=== PATIENT | male | born 1980 | race African-American/Black ===

== ENCOUNTER 2020-06-14 19:46 | Emergency (ER) | payer MEDICAID, SELFPAY ==
[2020-06-14 21:00] VITALS: BP 155/73; PULSE 86; RESP 16; TEMP 36.9; O2SAT 99; BMI 27.1
--- NOTE | 2020-06-14 21:30 | ED_ITS ---
HPI - Abdominal Pain General Chief Complaint: Abdominal Pain Stated Complaint: rib pain' Time Seen by Provider: 06/14/20 21:30 Source: patient Mode of arrival: ambulatory Limitations: no limitations History of Present Illness HPI narrative: Patient's history of recurrent kidney stones been having left flank pain for last 1 week was in [place] pain lasted for a day and then got better again for last 2 days having left flank pain radiating to the left lower quadrant and having pain in left testicle also patient denies any vomiting no shortness of breath nor abdominal distension no blood in the urine, patient feel s similar pain as in the past when he had kidney stones never been seen by urologist never had any stent placed or lithotripsy done Related Data Allergies Allergy/AdvReac Type Severity Reaction Status Date / Time No Known Allergies Allergy Verified 06/14/20 21:03 [No Known Allergies*] Review of Systems Review of Systems Constitutional : No Weight loss, No Fever, No Chills ENT/Mouth : No sore throat, No Rhinorrhea Eyes: No Eye Pain, No Swelling Cardiovascular : No Chest Pain, no palpitations Respiratory : No Cough, No Sputum, no shortness of breath Gastrointestinal : no Nausea, No Vomiting, No Diarrhea, ++ abdominal Pain, no black stools Genitourinary : No Dysuria, No Urinary Frequency Musculoskeletal : No joint pain, No Myalgias, No Joint Swelling Skin : No Skin Lesions, No rash Neuro : No Weakness, No Numbness, No Dizziness, No Headache Psych : No Anxiety/Panic, No Depression Heme/Lymph: No Bruising, No Lymphadenopathy Endocrine : No Polyuria, No Polydipsia All other systems reviewed and are negative Physical Exam Vital Signs: Vital Signs: Last Vital Signs Temp 98.1 F 06/15/20 00:00 Pulse 71 06/15/20 00:00 Resp 16 06/15/20 00:00 BP 156/82 H 06/15/20 00:00 Pulse Ox 99 06/15/20 00:00 Body Mass Index 27.1 Appearance: Alert. Oriented X3. In mild distress Eyes: Pupils equal, round and reactive to light. ENT: Pharynx normal. Neck: Normal inspection. Neck supple. CVS: Normal heart rate and rhythm. Pulses normal. Respiratory: No respiratory distress. Breath sounds normal. Abdomen: Soft and nontender. Bowel sounds are present, no mass palpable, left CVA tenderness ++ normal testicles nontender Skin: Skin warm and dry. Normal skin color. Normal skin turgor. Extremities: No lower extremity edema. Neuro: Oriented X 3. No motor deficit. No sensory deficit. MDM - Abdominal Pain MDM Narrative Medical decision making narrative: Patient with left UPJ stone 1.5 x 0.7 cm with obstructive hydronephrosis, feeling much better after pain medication and IV hydration. Patient advised to see Dr. Rose in the morning at 08:30. Patient had a COVID testing done 2 days ago which was negative Lab Data Attestation: I reviewed the patient's lab results. Result diagrams: 06/14/20 21:46 06/14/20 21:46 Labs: Lab Results 06/14/20 06/14/20 06/15/20 Range/Units 21:46 21:46 00:16 WBC 11.4 H (4.8-10.8) X10*3/uL RBC 4.36 L (4.60-5.80) X10*6/uL Hgb 12.5 L (14.0-18.0) g/dl Hct 37.3 L (42-52) % MCV 85.6 (80-98) fL MCH 28.7 (27.0-33.0) pg MCHC 33.5 (31.0-36.0) g/dl RDW 12.6 (11.0-16.0) % Plt Count 331 (160-400) X10*3/uL MPV 9.6 (9.4-12.4) fL Immature Gran % (Auto) 0.2 (0.0-0.4) % Neut % (Auto) 61.3 (45-73) % Lymph % (Auto) 27.9 (20-40) % Hancock % (Auto) 9.3 (2-11) % Eos % (Auto) 0.9 (0-4) % Baso % (Auto) 0.4 (0-2) % Lymph # (Auto) 3.2 (1.2-4.9) X10*3/uL Hancock # (Auto) 1.1 (0.1-1.2) X10*3/uL Eos # (Auto) 0.1 (0.0-0.4) X10*3/uL Baso # (Auto) 0.1 (0.0-0.2) X10*3/uL Abs Immat Gran (auto) 0.02 (0.00-0.03) X10*3/uL Absolute Neuts (auto) 7.0 (2.0-8.3) X10*3/uL Absolute Nucleated RBC 0.000 (0.0-0.012) X10*3/uL Nucleated RBC % (auto) 0.0 (0.0-0.2) /100WBC Sodium 141 (135-145) mmol/L Potassium 4.4 (3.3-5.1) mmol/l Chloride 101 (96-108) mmol/L Carbon Dioxide 30 H (22-29) mmol/L Anion Gap 14 (12-20) BUN 15 (9-16) mg/dL Creatinine 1.78 H (0.5-1.4) mg/dL Estim Creat Clear Calc 59.9 Estimated GFR 42 Random Glucose 253 H (60-115) mg/dL Calcium 9.4 (8.4-10.2) mg/dL Total Bilirubin 0.5 (0.0-1.0) mg/dL AST 20 (5-37) U/L ALT 21 (0-40) U/L Alkaline Phosphatase 68 (39-117) U/L Total Protein 8.0 (6.5-8.0) g/dL Albumin 5.0 (3.5-5.0) g/dL Urine Color YELLOW Urine Appearance CLEAR Urine pH 5.5 (5.0-8.0) Ur Specific [place] 1.025 (1.005-1.025) Urine Protein NEG (NEG-TRACE) MG/DL Urine Glucose (UA) 250 H (NEG) MG/DL Urine Ketones NEG (NEG) MG/DL Urine Blood 1+ H (NEG) Urine Nitrite NEG (NEG) Ur Leukocyte Esterase NEG (NEG) Urine RBC 1-4 (0) /HPF Urine WBC 1-4 (0-4) /HPF Ur Squamous Epith Cells 1+ /LPF Triple Phos Crystals 1+ /LPF Urine Bacteria 1+ /LPF Urine Mucus 1+ /LPF Imaging Data CT scan - abdomen: Attestation: I personally reviewed and interpreted this imaging study as follows: Radiologist's impression: CT/CT abdomen pelvis wo con IMPRESSION: Moderate hydronephrosis on the left caused by a large 1.5 x 0.7 cm calculus at the UPJ. Discharge Plan Discharge Clinical Impression: Calculus of kidney Patient Disposition: Home, Self-Care Instructions: Kidney Stones (ED) Additional Instructions: Drink plenty of fluid. Stay empty stomach in the morning and see urologist at 08:30 a.m. for further management Referrals: Enmanuel Rose MD [Physician] - 1 day [facility] Past Medical History Medical History Diabetes Kidney stones Social History Social History Advance Directives: No Advance Directives Information Provided: No
--- NOTE | 2020-06-14 21:35 | CT_ITS ---
EXAMINATION: CT ABDOMEN AND PELVIS WITHOUT CONTRAST CLINICAL INFORMATION: Left flank pain COMPARISON: None TECHNIQUE: Multidetector volumetric imaging was performed from the superior aspect of the liver through the pubic symphysis. Sagittal and coronal reformatted images were obtained on the technologist's workstation. This CT examination was performed using dose optimization techniques as appropriate, variously including the following: *Automated exposure control *Adjustment of mA and/or kV according to patient size (this includes techniques or standardized protocols for targeted exams where dose is matched to indication/reason for exam; i.e. extremities or head) *Use of iterative reconstruction technique DLP: 744 mGy-cm FINDINGS: LUNG BASES: The visualized lung bases are unremarkable. LIVER, GALLBLADDER, AND BILIARY TREE: The liver is normal in size, shape, and attenuation. No focal hepatic lesion or biliary ductal dilatation is present. The gallbladder is unremarkable with no evidence of radiopaque gallstones, gallbladder wall thickening, or obvious pericholecystic inflammatory changes. PANCREAS: Unremarkable. SPLEEN: Unremarkable. ADRENAL GLANDS: Unremarkable. KIDNEYS AND URETERS: Hydronephrosis on the left. This is caused by 1.5 x 0.7 cm calculus at the level of the UPJ. 2 tiny nonobstructing calculi in the lower pole are also noted. The right kidney is nonhydronephrotic. BLADDER: Mildly thick-walled. GASTROINTESTINAL TRACT: The small and large bowel are unremarkable. The appendix is unremarkable. ABDOMINAL WALL: No significant hernia is appreciated. LYMPH NODES: Normal. VASCULAR: Unremarkable. PELVIC VISCERA: Unremarkable. OSSEOUS STRUCTURES: Unremarkable. CT/CT abdomen pelvis wo con IMPRESSION: Moderate hydronephrosis on the left caused by a large 1.5 x 0.7 cm calculus at the UPJ.
[2020-06-14 21:50] LABS: MANUAL DIFF FLAG NO
[2020-06-14 21:51] LABS: Basophils Absolute Auto 0.1 X10*3/uL (0.0-0.2); Basophils Percent Auto 0.4 % (0-2); Eosinophils Absolute Auto 0.1 X10*3/uL (0.0-0.4); Eosinophils Percent Auto 0.9 % (0-4); Hematocrit 37.3 % (42-52); Hemoglobin 12.5 g/dl (14.0-18.0); Imm Gran Abs Auto 0.02 X10*3/uL (0.00-0.03); Imm Gran Pct Auto 0.2 % (0.0-0.4); Lymphocytes Absolute Auto 3.2 X10*3/uL (1.2-4.9); Lymphocytes Percent Auto 27.9 % (20-40); Mean Corpuscular HGB Conc 33.5 g/dl (31.0-36.0); Mean Corpuscular Hemoglobin 28.7 pg (27.0-33.0); Mean Corpuscular Volume 85.6 fL (80-98); Mean Platelet Volume 9.6 fL (9.4-12.4); Monocytes Absolute Auto 1.1 X10*3/uL (0.1-1.2); Monocytes Percent Auto 9.3 % (2-11); Neutrophils Percent Auto 61.3 % (45-73); Platelet Count 331 X10*3/uL (160-400); Red Blood Count 4.36 X10*6/uL (4.60-5.80); Red Cell Distribution Width 12.6 % (11.0-16.0); White Blood Count 11.4 X10*3/uL (4.8-10.8)
[2020-06-14] MEDS: 0.9 % Sodium Chloride 1,000 ML 999 ML IVCONT (21:58)
[2020-06-14] MEDS: ondansetron HCL 4 MG/2 ML VIAL IVPUSH (22:02)
[2020-06-14] MEDS: Ketorolac Tromethamine 30 MG/ML VIAL IVPUSH (22:03)
[2020-06-14] MEDS: Morphine Sulfate 4 MG/ML CARTRIDGE IVPUSH (22:04)
[2020-06-14 22:11] LABS: Alanine Aminotransferase 21 U/L (0-40); Alkaline Phosphatase 68 U/L (39-117); Anion Gap 14 (12-20); Aspartate Amino Transferase 20 U/L (5-37); Bilirubin Total 0.5 mg/dL (0.0-1.0); Blood Urea Nitrogen 15 mg/dL (9-16); Calcium 9.4 mg/dL (8.4-10.2); Carbon Dioxide 30 mmol/L (22-29); Chloride 101 mmol/L (96-108); Creatinine Clr Calc Pharmacy 59.9; Estimated Glomerular Filt Rate 42; Glucose Random 253 mg/dL (60-115); Potassium 4.4 mmol/l (3.3-5.1); Sodium 141 mmol/L (135-145)
[2020-06-14 22:15] VITALS: BP 154/83; PULSE 76; RESP 18; O2SAT 8
[2020-06-14 22:49] VITALS: BP 150/88; PULSE 76; RESP 18; TEMP 36.9; O2SAT 97
[2020-06-14] MEDS: Tamsulosin HCL 0.4 MG CAPSULE 0.8 MG PO (23:05)
[2020-06-14 23:06] VITALS: RESP 18
[2020-06-14] MEDS: HYDROmorphone HCl 1 MG/ML SYRINGE IVPUSH (23:06)
[2020-06-14 23:59] VITALS: BP 134/77; PULSE 79; RESP 18; O2SAT 97
[2020-06-15] VITALS: BP 156/82; PULSE 71; RESP 16; TEMP 36.7; O2SAT 99
[2020-06-15 00:22] LABS: Glucose Urine UA 250 MG/DL (NEG); Leukocyte Esterase Urine NEG (NEG); Nitrite Urine NEG (NEG); PH 5.5 (5.0-8.0); Specific Gravity - Urine 1.025 (1.005-1.025); Urine Blood 1+ (NEG); Urine Ketones NEG (NEG); Urine Protein NEG (NEG-TRACE)
[2020-06-15 00:24] LABS: Appearance Urine CLEAR; Color Urine YELLOW
[2020-06-15 00:31] LABS: Bacteria Urine 1+ /LPF; Mucus Urine 1+ /LPF; Squamous Epithelial Cell Urine 1+ /LPF
[2020-06-15 00:32] LABS: Triple Phosphate Crystal Urine 1+ /LPF
--- NOTE | 2020-06-15 01:13 | PC.NURSE ---
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
[2020-06-15 01:52] VITALS: BP 131/75; PULSE 72; RESP 20; O2SAT 96
== END 2020-06-15 02:01 | disposition home or self-care (01) ==
PROVIDERS: Emergency Provider Internal Medicine
DX: N13.2 Hydronephrosis with renal and ureteral calculous obstruction (principal); Z87.442 Personal history of urinary calculi
CPT/HCPCS: 36415; 74176; 80053; 81001; 85025; 96361; 96374; 96375; 99284; J1100; J1170; J1885; J2270; J2405

== ENCOUNTER → 2020-06-15 08:44 | Outpatient (BNVA) | payer MEDICAID, SELFPAY | PROVIDERS: Visit Provider Urology | DX: N20.0 Calculus of kidney (principal) | CPT/HCPCS: 99202 ==

== ENCOUNTER 2020-06-26 06:03 | Day surgery (SDC) | payer MEDICAID, SELFPAY ==
--- NOTE | 2020-06-16 12:56 | P.CONAN_ITS ---
Documented by User: Mary Mayes 06/21/20 15:08 HPI - Anesthesia Eval Consult details Narrative: 39yo M for Cystoscopy, Ureteroscopy, Laser Ablation, LEFT PMFSH Past Medical History Medical History Diabetes High cholesterol HTN (hypertension) Kidney stones Social History Social History Alcohol intake: current Alcohol intake frequency: a few times a week Alcohol type: hard liquor Smoking Status: Never smoker Use of substances other than those prescribed or required for medical reasons: No Advance Directives: No Advance Directives Information Provided: Yes Meds Allergies Allergy/AdvReac Type Severity Reaction Status Date / Time No Known Allergies Allergy Verified 06/26/20 06:11 [No Known Allergies*] Home Medications Medication Instructions Recorded Confirmed Type atorvastatin 40 mg tablet 40 mg PO DAILY 06/15/20 History blood sugar diagnostic #10 ea 06/15/20 History hydrochlorothiazide 25 mg tablet 25 mg PO DAILY 06/15/20 History insulin glargine 100 unit/mL (3 unit SUBCUT 06/15/20 History mL) subcutaneous pen insulin lispro 100 unit/mL 5 unit SUBCUT TID 06/15/20 History subcutaneous cartridge lancets 28 gauge #100 ea 06/15/20 History losartan 25 mg tablet 25 mg PO DAILY 06/15/20 History metformin 1,000 mg tablet 1,000 mg PO BID 06/15/20 History metformin 850 mg tablet 850 mg PO QAM 06/15/20 History Exam Exam Date and Time: June 16, 2020 1256 Pertinent Lab Results Pertinent Lab Results: Laboratory Tests 06/14/20 06/14/20 21:46 21:46 WBC 11.4 H Hgb 12.5 L Hct 37.3 L Plt Count 331 Sodium 141 Potassium 4.4 Chloride 101 Carbon Dioxide 30 H BUN 15 Creatinine 1.78 H Assessment and Plan Assessment Anesthesia Assessment: Chart Reviewed Documented by User: Mary Carmen Collins 06/26/20 07:45 [facility] Past Medical History Medical History Diabetes High cholesterol HTN (hypertension) Kidney stones Social History Social History Alcohol intake: current Alcohol intake frequency: a few times a week Alcohol ty pe: hard liquor Smoking Status: Never smoker Use of substances other than those prescribed or required for medical reasons: No Advance Directives: No Advance Directives Information Provided: Yes Meds Allergies Allergy/AdvReac Type Severity Reaction Status Date / Time No Known Allergies Allergy Verified 06/26/20 06:11 [No Known Allergies*] Home Medications Medication Instructions Recorded Confirmed Type atorvastatin 40 mg tablet 40 mg PO DAILY 06/15/20 History blood sugar diagnostic #10 ea 06/15/20 History hydrochlorothiazide 25 mg tablet 25 mg PO DAILY 06/15/20 History insulin glargine 100 unit/mL (3 unit SUBCUT 06/15/20 History mL) subcutaneous pen insulin lispro 100 unit/mL 5 unit SUBCUT TID 06/15/20 History subcutaneous cartridge lancets 28 gauge #100 ea 06/15/20 History losartan 25 mg tablet 25 mg PO DAILY 06/15/20 History metformin 1,000 mg tablet 1,000 mg PO BID 06/15/20 History metformin 850 mg tablet 850 mg PO QAM 06/15/20 History Exam Airway Mallampati Class: II TM Dist: >3cm Neck ROM: Full Heart: rrr Lungs: cta Assessment and Plan Assessment Anesthesia Assessment: Anesthesia Plan Discussed and Chart Reviewed Final Anesthetic Review NPO: Yes ASA Class: II Final Preanesthetic Review: No Changes in Pt Med Stat, Meds/Allgs Chart Reviewed, Consent Obtained/Reviewed and Anes Risks/Benef Reviewed Patient Risk: Intermediate Procedure Risk: Low Assessment/Block/Sedation in SS: Assess/Block/Sedation-SS Anesthetic Plan Anesthetic Plan: GA Disposition: Standard PACU
[2020-06-26] VITALS (7 sets, daily range): BP systolic 138–151; BP diastolic 84–93; PULSE 74–96; RESP 16–20; TEMP 36.3–37.2; O2SAT 97–99; BMI 30.5
[2020-06-26 06:26] LABS: Glucose, Whole Blood 349 mg/dL (60-115)
[2020-06-26] MEDS: levoFLOXacin 500 MG TABLET PO (06:31)
--- NOTE | 2020-06-26 07:04 | FL_ITS ---
EXAMINATION: XR FLUOROSCOPY WITH IMAGES CLINICAL INFORMATION: Left UVJ stone COMPARISON: Previous CT of the abdomen and pelvis 06/14/2020 TECHNIQUE: Fluoroscopy performed by Dr. Enmanuel Rose. Fluoroscopy time: 59 seconds Dose: 26 mgy Images: 1 FINDINGS: Single fluoroscopic image demonstrates the proximal and a ureteral stent projecting over the left kidney and proximal ureter. FL/FL guidance in OR IMPRESSION: Intraoperative fluoroscopy for left ureteral stent placement.
--- NOTE | 2020-06-26 07:25 | MHC.SHP ---
Pre-Procedural Eval Section A The patient is an INPATIENT: No Changes since office visit: No Cold of Flu in the past 2 weeks, No New Medical Problems, No Changes in Medication and No Patient answered all questions The History & Physical has been completed within 30 days and I have reviewed it.: Yes Section B Chief Complaint: Calculus of kidney Allergies: Allergies Allergy/AdvReac Type Severity Reaction Status Date / Time No Known Allergies Allergy Verified 06/26/20 06:11 [No Known Allergies*] Plan Diagnosis/Plan: Unchanged I have reviewed the history and physical and performed a pertinent physical examination on my patient. No changes have occurred unless specified. Cystoscopy, left retrograde, left ureteroscopy, laser
--- NOTE | 2020-06-26 08:28 | PM.OP ---
Brief Operative Note Date of Service: 06/26/20 Pre-op diagnosis: Left renal stone Post-op diagnosis: same Procedure: 1. Left retrograde 2. Dilatation left ureteric orifice 3. Left ureteroscopy laser lithotripsy stone basketing 4. Stent placement Implants: 6 Egyptian by 26 cm stent Surgeon: Enmanuel Rose MD Anesthesia: GLMA Estimated blood loss (mL): 0 Pathology: other (stones) Condition: stable Disposition: same day
[2020-06-26 08:44] LABS: Glucose, Whole Blood 273 mg/dL (60-115)
[2020-06-26] MEDS: Acetaminophen 325 MG TABLET 650 MG PO (08:49)
[2020-06-26] MEDS: Phenazopyridine HCL 100 MG TABLET PO (08:50)
--- NOTE | 2020-06-26 08:53 | P.OP_ITS ---
Operative Note Operative Note Date of Service: 06/26/20 Narrative: PreOperative Diagnosis: Left renal stone Post Operative Diagnosis: Left renal stone Procedure: - left cystoscopy, retrograde - left dilatation of ureteric orifice under fluoroscopy - left ureteroscopy, laser lithotripsy, stone basketing -left stent placement Surgeon: Dr Enmanuel Rose Anesthesia: General Indications for procedure: This is a 39-year-old male. Seen in the emergency room with left-sided flank pain. Imaging showed a 11 mm stone at the left UPJ. Recommendation was for ureteroscopy with laser lithotripsy. Has passed stones previously. Has not had intervention for them but has come close. Recommendation was based on getting sample for stone analysis Procedure: After informed consent was verified patient was brought to the operating placed in supine position. Anesthesia was administered per protocol. Patient was placed in modified dorsal lithotomy position and prepped and draped in a sterile fashion. Safety pause time-out and side of surgery confirmed. Antibiotics confirmed. Twenty-two [place]ran cystoscope was inserted per urethra. Anterior and posterior urethra normal. Bladder was normal. The ureteric orifices in normal position laterally. Left ureteric orifice was cannulated and retrograde examination was performed. Filling defect was seen at the left UPJ. Sensor guidewire was placed. There was fluid obtained indicative of persistent hydronephrosis. A 22 [place] cystoscope was removed. Using the inner cannula of the access sheath the left ureteric orifice was dilated under fluoroscopy. The inner cannula was removed in the ureter care access sheath was placed. A flexible ureteral scope was then placed the in renal pelvis was examined. There was a lot of stone debris and large stones seen. Using a 279 m laser fiber the stone was engaged and using a combination of stone nammer and stone dusting techniques stone was pulverized. The Zero tip basket was used and stone debris was removed and will be sent for analysis. With completion of the procedure sensor guidewire was placed back in the renal pelvis. The ureteric access sheath was removed. The wire was backloaded through the 22 [place]ran cystoscope. A 6 [place] by 26 cm double-J stent was placed over the wire and up to the level renal pelvis. Good coil was seen within the bladder and under fluoroscopy it was in correct placement. The bladder was emptied. He tolerated procedure well was extubated in operating room transferred in a stable condition recovery area. Pathology: Stones Drains: 6 [place] by 24 cm stent
[2020-06-26] MEDS: ondansetron HCL 4 MG/2 ML VIAL IVPUSH (09:17)
--- NOTE | 2020-06-26 09:54 | HO.POSTANES ---
Post Anesthesia Evaluation Post Anesthesia Evaluation Vital Signs: Vital Signs Temp Pulse Resp BP Pulse Ox 06/26/20 09:20 97.4 F 74 18 144/93 H 99 06/26/20 09:05 79 16 138/88 98 06/26/20 08:50 84 18 140/85 H 98 06/26/20 08:45 81 20 138/87 98 06/26/20 08:40 84 18 144/89 H 97 06/26/20 08:35 97.3 F 96 16 151/88 H 98 06/26/20 06:26 98.9 F 87 16 142/84 H 98 Anesthesia: General LMA Mental Status: Awake Pain Control: Satisfactory Nausea/Vomiting: None Hydration: Adequate Anesthesia-Related Issues: No Anes. Related Issues
[2020-06-29 22:18] LABS: Stone Source KIDNEY STONE
== END 2020-06-26 09:51 | disposition home or self-care (01) ==
PROVIDERS: Visit Provider Urology
PROC: (CPT 52356; principal; 2020-06-26 07:30)
DX: N20.0 Calculus of kidney (principal); Z87.442 Personal history of urinary calculi; E11.9 Type 2 diabetes mellitus without complications; I10 Essential (primary) hypertension; Z79.4 Long term (current) use of insulin; Z79.899 Other long term (current) drug therapy
CPT/HCPCS: 52356; 82365; 82947; 88300; C1758; C1769; C1894; C2617; J1100; J1885; J2250; J2405; J3010; Q9967

== ENCOUNTER → 2020-07-04 12:25 | Outpatient (BNVA) | payer MEDICAID, SELFPAY | PROVIDERS: Visit Provider Urology | DX: N20.0 Calculus of kidney (principal); Z46.6 Encounter for fitting and adjustment of urinary device | CPT/HCPCS: 52000; 52310; 99212 ==